=== PATIENT | male | born 1955 | race African-American/Black ===

== ENCOUNTER 2018-06-08 15:01 | Emergency (ER) | payer OTHER ==
[~2018-06-08] VITALS: Ht 180.3 cm; Wt 88.9 kg
[2018-06-08 15:09] VITALS: BP 111/72
--- NOTE | 2018-06-08 15:56 | NUR ---
PATIENT AMBULATED TO BED 8
--- NOTE | 2018-06-08 15:57 | NUR ---
PT. CAME INTO THE ED DUE TO L TOE LACERATION TODAY. PT. STATES " I WAS WALKING AND I TRIP AND BUMPED MY TOE AND IT STARTED BLEEDING". 2/10 PAIN IN L TOE THAT IS SHARP AND NON RADIATING. L TOE IS SWOLLEN AND WARM TO TOUCH. CAP REFILL IS LESS THAN 3 SECONDS ON L FOOT. ER MD NOTIFIED. WILL CONTINUE TO MONITOR.
[2018-06-08] MEDS ORDERED: NEOMYCIN/POLYMYXIN/BACITRACIN 0.9 GM/1 PKT TP ONE (17:30)
[2018-06-08] MEDS ORDERED: cefTRIAXone 1,000 MG in LIDOCAINE 1% ***ER ONLY *** 2.1 ML IM ONE (17:30)
[2018-06-08] MEDS ORDERED: HYDROcodone/APAP 5/325 MG 1 TAB TAB PO ONE (17:30)
[2018-06-08] MEDS ORDERED: cefTRIAXone 1,000 MG VIAL ONE (17:40)
[2018-06-08] MEDS ORDERED: LIDOCAINE MPF 1% - **ER/OR** 5 ML ONE (17:41)
--- NOTE | 2018-06-08 18:00 | NUR ---
PT. RETING COMFORTABLY IN BED , RR EVEN AND UNLABORED, VSS. WILL CONTINUE TO MONITOR.
--- NOTE | 2018-06-08 18:34 | NUR ---
XRAY AT BEDSIDE AT THIS TIME.
[2018-06-08 19:08] VITALS: BP 116/70
== END 2018-06-08 19:08 | disposition home or self-care (01) ==
LOC: MED 15:01
DX: S92.425A Nondisplaced fracture of distal phalanx of left great toe, initial encounter for closed fracture (principal); I10 Essential (primary) hypertension; E78.5 Hyperlipidemia, unspecified; W01.0XXA Fall on same level from slipping, tripping and stumbling without subsequent striking against object, initial encounter; Y93.89 Activity, other specified; Y92.89 Other specified places as the place of occurrence of the external cause; Y99.8 Other external cause status
CPT/HCPCS: 12002; 73660; 90471; 90715; 96372; 99284; J0696; J2001

== ENCOUNTER 2019-01-08 11:01 | Emergency (ER) | payer OTHER ==
[~2019-01-08] VITALS: Ht 180.3 cm; Wt 84.0 kg
[2019-01-08 11:45] VITALS: BP 100/71
--- NOTE | 2019-01-08 12:11 | NUR ---
PT RECENTLTLY CAME BACK FROM THE [facility] AND [facility] [place] LAST TUESDAY WITH C/O ABDOMINAL PAIN, CONSTIPATION SINCE YESTERDAY, FEVER, NIGHT SWEATS AND FATIGUE. PER PT HE HAD DIARRHEA A WEAK AGO NO CONSTIPATED AND SYMPTOMS ARE "LIKE MALARIA". LAST BM TODAY. PT REPORTS RECIEVING MALARIA SHOTS BEFORE LEAVING FOR CHARGED.fm. VSS; PATIENT POSITIONED FOR COMFORT; HOB ELEVATED; BEDRAILS UP X1; BED DOWN. ER MD MADE AWARE OF PT STATUS.
[2019-01-08 12:57] LABS: BASOPHILS % (AUTO) 0.5 % (0.0-2.0); EOSINOPHILS % (AUTO) 0.4 % (0.0-4.0); HEMATOCRIT 38.5 % (36-52); HEMOGLOBIN 12.9 g/dL (12.0-18.0); LYMPHOCYTES # (AUTO) 2.4 K/uL (2.0-11.5); LYMPHOCYTES % (AUTO) 36.8 % (20.5-51.1); MEAN CORPUSCULAR HEMOGLOBIN 30 pg (27-31); MEAN CORPUSCULAR HGB CONC 34 g/dL (33-37); MEAN CORPUSCULAR VOLUME 90.2 fL (80-94); MONOCYTES # (AUTO) 0.4 K/uL (0.8-1.0); MONOCYTES % (AUTO) 6.1 % (1.7-9.3); NEUTROPHILS # (AUTO) 3.7 K/uL (1.8-7.7); NEUTROPHILS % (AUTO) 56.2 % (42.2-75.2); PLATELET COUNT (AUTO) 329 K/uL (140-450); RED BLOOD CELL COUNT(AUTO) 4.27 MIL/uL (4.20-6.10); RED CELL DISTRIBUTION WIDTH 14.1 % (11.6-13.7); WHITE BLOOD COUNT (AUTO) 6.5 K/uL (4.8-10.8)
[2019-01-08 13:11] LABS: ANION GAP 8.2 (8-16); CARBON DIOXIDE 34.3 mmol/L (21-32); CREATININE 1.3 mg/dL (0.7-1.3); POTASSIUM 3.5 mmol/L (3.5-5.1)
[2019-01-08 13:17] LABS: ALBUMIN 3.4 g/dL (3.4-5.0); TOTAL BILIRUBIN 0.5 mg/dL (0.0-1.0)
[2019-01-08 13:22] LABS: APPEARANCE,URINE CLEAR (CLEAR); BILIRUBIN,URINE NEGATIVE (NEGATIVE); BLOOD, URINE NEGATIVE (NEGATIVE); COLOR,URINE YELLOW (YELLOW); LEUKOCYTE ESTERASE ,URINE NEGATIVE (NEGATIVE); NITRITE, URINE NEGATIVE (NEGATIVE); PH,URINE 7.5 (5.0-9.0); UGLUCOSE NEGATIVE (NEGATIVE)
[2019-01-08 13:26] LABS: RBC,URINE 0-5 (RARE) /HPF (0-5); WBC,URINE 0-5 (RARE) /HPF (0-5)
--- NOTE | 2019-01-08 15:17 | NUR ---
Patient discharged with v/s stable. Written and verbal after care instructions given and explained. Patient alert, oriented and verbalized understanding of instructions. Ambulatory with steady gait. All questions addressed prior to discharge. ID band removed. Patient advised to follow up with PMD. Rx of IBUPROFEN AND AUGMENTIN given. Patient educated on indication of medication including possible reaction and side effects. Opportunity to ask questions provided and answered.
[2019-01-08 15:18] VITALS: BP 106/79
== END 2019-01-08 15:17 | disposition home or self-care (01) ==
LOC: MED 11:01
DX: K52.9 Noninfective gastroenteritis and colitis, unspecified (principal); R61 Generalized hyperhidrosis; I10 Essential (primary) hypertension
CPT/HCPCS: 36415; 71045; 74176; 80053; 81001; 85025; 87205; 87804; 93005; 99284; Q0092

== ENCOUNTER 2019-05-30 17:28 | Inpatient (IN) | payer OTHER ==
[~2019-05-30] VITALS: Ht 180.3 cm; Wt 80.7 kg
[2019-05-30 17:33] VITALS: BP 111/68
--- NOTE | 2019-05-30 17:35 | NUR ---
PT AMBULATED TO ER BED 12
--- NOTE | 2019-05-30 17:51 | NUR ---
PT PRESENTS TO ED WITH C/O DIARRHEA SINCE March. PT WAS DIAGNOSED WITH CRYPTOSPORDIUM 05/29/19 BY PCP BUT WAS NOT GIVEN ANY MEDICATION FOR TREATMENT. PT REPORTS DIARRHEA EVERY HOUR, LOSS OF 18LBS IN LAST MONTH. DENIES BLOOD IN STOOL, VOMITING, FEVER. HX: HTN, HIGH CHOLESTEROL RX: ATORVASTATIN, AMLODIPINE
--- NOTE | 2019-05-30 17:54 | NUR ---
DR. CANNON EVALUATED PT
[2019-05-30] MEDS ORDERED: NACL 0.9% 1,000 ML IV ONE (17:55)
[2019-05-30] MEDS ORDERED: metroNIDAZOLE 500 MG/NS PREMIX 100 ML IV ONE (17:55)
[2019-05-30] MEDS ORDERED: ONDANSETRON 4 MG/2 ML VIAL IVP ONE (17:55)
--- NOTE | 2019-05-30 18:03 | NUR ---
PT TAKEN TO CT VIA WHEELCHAIR
[2019-05-30 18:30] LABS: BASOPHILS % (AUTO) 0.2 % (0.0-2.0); EOSINOPHILS # (AUTO) 0.5 K/uL (0-0.4); EOSINOPHILS % (AUTO) 4.3 % (0.0-4.0); HEMATOCRIT 37.8 % (36-52); HEMOGLOBIN 12.9 g/dL (12.0-18.0); LYMPHOCYTES # (AUTO) 2.3 K/uL (2.0-11.5); LYMPHOCYTES % (AUTO) 20.7 % (20.5-51.1); MEAN CORPUSCULAR HEMOGLOBIN 31 pg (27-31); MEAN CORPUSCULAR HGB CONC 34 g/dL (33-37); MEAN CORPUSCULAR VOLUME 90.7 fL (80-94); MONOCYTES # (AUTO) 1.2 K/uL (0.8-1.0); MONOCYTES % (AUTO) 11.2 % (1.7-9.3); NEUTROPHILS # (AUTO) 6.9 K/uL (1.8-7.7); NEUTROPHILS % (AUTO) 63.6 % (42.2-75.2); PLATELET COUNT (AUTO) 315 K/uL (140-450); RED BLOOD CELL COUNT(AUTO) 4.17 MIL/uL (4.20-6.10); RED CELL DISTRIBUTION WIDTH 14.5 % (11.6-13.7); WHITE BLOOD COUNT (AUTO) 10.9 K/uL (4.8-10.8)
[2019-05-30 18:51] LABS: ALBUMIN 3.1 g/dL (3.4-5.0); ANION GAP 12.6 (8-16); CARBON DIOXIDE 28.5 mmol/L (21-32); CREATININE 1.8 mg/dL (0.7-1.3); POTASSIUM 3.1 mmol/L (3.5-5.1); TOTAL BILIRUBIN 0.7 mg/dL (0.0-1.0)
[2019-05-30] MEDS ORDERED: ATOR40TA PO (19:07)
[2019-05-30] MEDS ORDERED: AMLO5TAB PO (19:07)
[2019-05-30] MEDS ORDERED: TIM.5OS OP (19:07)
[2019-05-30] MEDS ORDERED: ALPOS OP (19:07)
--- NOTE | 2019-05-30 19:09 | NUR ---
REPORT GIVEN TO DELFINO PINO. TRANSFER OF CARE AT THIS TIME. PT IN STABLE CONDITION.
[2019-05-30] MEDS ORDERED: KCL 20 MEQ/WATER INJ PREMIX 100 ML IV ONE (19:15)
[2019-05-30] MEDS ORDERED: LEVOFLOXACIN 750 MG/D5W PREMIX 150 ML IV ONE (19:25)
--- NOTE | 2019-05-30 20:00 | NUR ---
PT IN BED RESTING WITH EYES OPEN. 0/10 PAIN. NO N/V. VSS. CONTINUE TO MONITOR.
[2019-05-30] MEDS ORDERED: HYDROcodone/APAP 7.5/325 MG 1 TAB PO PRN (20:30)
[2019-05-30] MEDS ORDERED: ACETAMINOPHEN 325 MG TAB PO PRN (20:30)
[2019-05-30] MEDS ORDERED: ONDANSETRON 4 MG/2 ML VIAL IVP PRN (20:30)
--- NOTE | 2019-05-30 21:07 | NUR ---
REPORT GIVEN AND CARE TRANSFERED TO FEBRUARY RN ROOM 125B. TRNASFERED VIA GURNEY WITH VSS.
[2019-05-30 21:18] LABS: FREE T4 (FREE THYROXINE) 1.21 ng/dL (0.76-1.46); MAGNESIUM 1.7 mg/dL (1.8-2.4); PHOSPHORUS 2.9 mg/dL (2.5-4.9); THYROID STIMULATING HORMONE 1.5 uIU/mL (0.34-3.74)
--- NOTE | 2019-05-30 21:25 | NUR ---
RECEIVED PT FROM ER NURSE. PT AMBULATED FROM GURNEY TO BED, STEADY GAIT. PT AWAKE, ALERT AND ORIENTED X4, ABLE TO VERBALIZE NEEDS. BREATHING ON ROOM AIR, NO VISIBLE SIGNS OF DISTRESS, NO C/O DISCOMFORT. PT HAS IV 20G IN BOTH RIGHT AND LEFT A/C, FLUSHED WITH SALINE, INTACT AND PATENT. SAFETY MEASURES IN PLACE. PT ORIENTED EDGE POLISHER LIGHT. CALL LIGHT WITHIN REACH.
[2019-05-30 21:32] LABS: APPEARANCE,URINE CLEAR (CLEAR); BILIRUBIN,URINE NEGATIVE (NEGATIVE); BLOOD, URINE NEGATIVE (NEGATIVE); COLOR,URINE YELLOW (YELLOW); LEUKOCYTE ESTERASE ,URINE NEGATIVE (NEGATIVE); NITRITE, URINE NEGATIVE (NEGATIVE); UGLUCOSE NEGATIVE (NEGATIVE)
[2019-05-30] MEDS ORDERED: POTASSIUM CHLORIDE 10 MEQ TABER PO ONE (21:35)
[2019-05-30 21:40] LABS: BARBITURATE, URINE NEG. ng/ml (NEG <=200); BENZODIAZEPINE, URINE NEG. ng/mL (NEG <=200); CANNABINOID, URINE NEG. ng/mL (NEG <=50); COCAINE, URINE NEG. ng/mL (NEG <=300); OPIATE, URINE NEG. ng/mL (NEG <=2000); PHENCYCLIDINE SCREEN,URINE NEG. ng/mL (NEG <=25)
--- NOTE | 2019-05-30 23:01 | NUR ---
MEDICATION GIVEN ORDERED. PT TOLERATED WELL.
[2019-05-30] MEDS: DEXT 5% /NACL 0.9% 1,000 ML IV SCH (23:11)
[2019-05-31] VITALS: BP 110/70
--- NOTE | 2019-05-31 | NUR ---
STOOL SAMPLES COLLECTED AND SENT TO LAB.
--- NOTE | 2019-05-31 01:37 | NUR ---
IV ANTIBIOTICS HUNG. PT SLEEPING BUT EASILY AWAKEN. NO C/O DISCOMFORT. CALL LIGHT WITHIN REACH.
[2019-05-31] MEDS ORDERED: cefTRIAXone 1,000 MG VIAL ONE (01:42)
--- NOTE | 2019-05-31 03:15 | NUR ---
RESULTS FROM OB STOOL SAMPLE CAME BACK POSITIVE. RESIDENT MD MADE AWARE.
--- NOTE | 2019-05-31 05:00 | NUR ---
LEONARDO CULP. PT SLEEPING IN BED. NO VISIBLE SIGNS OF DISTRESS. BREATHING EQUAL AND UNLABORED.
[2019-05-31] MEDS: metroNIDAZOLE 500 MG/NS PREMIX 100 ML IV SCH ×2 (05:03→12:30)
[2019-05-31] MEDS: DEXT 5% /NACL 0.9% 1,000 ML IV SCH (06:24)
[2019-05-31 06:51] LABS: BASOPHILS % (AUTO) 0.2 % (0.0-2.0); EOSINOPHILS # (AUTO) 0.4 K/uL (0-0.4); EOSINOPHILS % (AUTO) 3.5 % (0.0-4.0); HEMATOCRIT 36.4 % (36-52); HEMOGLOBIN 12.4 g/dL (12.0-18.0); LYMPHOCYTES % (AUTO) 28.5 % (20.5-51.1); MEAN CORPUSCULAR HEMOGLOBIN 31 pg (27-31); MEAN CORPUSCULAR HGB CONC 34 g/dL (33-37); MEAN CORPUSCULAR VOLUME 90.6 fL (80-94); MONOCYTES # (AUTO) 1.2 K/uL (0.8-1.0); MONOCYTES % (AUTO) 11.6 % (1.7-9.3); NEUTROPHILS # (AUTO) 5.9 K/uL (1.8-7.7); NEUTROPHILS % (AUTO) 56.2 % (42.2-75.2); PLATELET COUNT (AUTO) 278 K/uL (140-450); RED BLOOD CELL COUNT(AUTO) 4.01 MIL/uL (4.20-6.10); RED CELL DISTRIBUTION WIDTH 14.3 % (11.6-13.7); WHITE BLOOD COUNT (AUTO) 10.5 K/uL (4.8-10.8)
[2019-05-31 06:53] LABS: ANION GAP 14.5 (8-16); CARBON DIOXIDE 23.8 mmol/L (21-32); CREATININE 1.3 mg/dL (0.7-1.3); POTASSIUM 3.3 mmol/L (3.5-5.1)
--- NOTE | 2019-05-31 07:01 | NUR ---
RECEIVED BED SIDE REPORT FROM FABRIC WORKER SUPERVISOR RN FEBRUARY. PT SLEEPING, ON CONTACT PRECAUTIONS, STOOL SPECIMEN SENT FOR CONFIRMATION OF INFECTIOUS SOURCE. WILL AWAIT RESULTS
[2019-05-31 07:02] LABS: MAGNESIUM 1.6 mg/dL (1.8-2.4); PHOSPHORUS 2.8 mg/dL (2.5-4.9)
--- NOTE | 2019-05-31 07:02 | NUR ---
ENDORSED PT TO AM NURSE. PT IN STABLE CONDITION.
[2019-05-31 07:03] LABS: CHOL/HDL RATIO 2.3 (1-4.5)
--- NOTE | 2019-05-31 09:07 | NUR ---
PATIENT HAS BEEN SCREENED AND CATEGORIZED HIGH NUTRITION RISK. PATIENT WILL BE SEEN WITHIN 1-2 DAYS OF ADMISSION. 05/31/19KILLIAN CANCINO MBA, RD
--- NOTE | 2019-05-31 09:29 | NUR ---
PT SAID HE HAD 7 DIARRHEA EPISODES LAST NIGHT AND SOME THIS AM. US ABDOMEN TO BE DONE AT 1500. VS STABLE. ON RA IN NO RESPIRATORY DISTRESS. RESIDENTS CAME TO DO ROUNDS ON PT. TOLD HIM THAT WE WILL WAIT FOR STOOL SAMPLE RESULTS TO COME BACK.
[2019-05-31] MEDS: MAGNESIUM OXIDE 400 MG TAB PO SCH (09:50)
[2019-05-31] MEDS: amLODIPine 5 MG TAB PO SCH (09:52)
[2019-05-31] MEDS: ATORVASTATIN 20 MG TAB PO SCH (09:52)
[2019-05-31] MEDS: PANTOPRAZOLE 40 MG INJ VIAL IVP SCH (09:55)
[2019-05-31] MEDS: BRIMONIDINE TARTRATE 0.2% OP 5 ML BTL LEFT EYE SCH (10:30)
[2019-05-31] MEDS ORDERED: COMMUNICATION ORDER MC PRN (10:55)
[2019-05-31] MEDS ORDERED: TIMOLOL OP 0.5% 5 ML BTL OP SCH (11:00)
[2019-05-31] MEDS ORDERED: SHARK OIL/PHENYLEPHRINE 60 GM TUBE TP PRN (11:30)
[2019-05-31] MEDS ORDERED: POTASSIUM CHLORIDE 10 MEQ TABER PO SCH (12:30)
[2019-05-31] MEDS ORDERED: MAG SULF 2000 MG/WATER PREMIX 100 ML IV SCH (12:30)
[2019-05-31] MEDS: NACL 0.9% 1,000 ML IV SCH (12:37)
--- NOTE | 2019-05-31 12:40 | NUR ---
GAVE PT TIMOLOL EYEDROPS. ALPHAGAN EYE DROPS NOT AVAILABLE IN PHARMACY TODAY. TOLD ME IT WOULD BE READY TOMORROW MORNING 06/01. HUNG MAGNESIUM SULFATE, MAGNESIUM LEVEL 1.6 THROUGH RIGHT AC. HUNG FLAGYL THROUGH LEFT AC. IV FLUIDS CHANGED TO NS RUNNING 40CC/HR. GAVE POTASSIUM CHLORIDE 40MEG TAB. EDUCATED PT ON MEDICATION AND ELECTROLYTE SUPPLEMENTAL AND S/E. PT VERBALIZED UNDERSTANDING. WILL CONTINUE TO MONITOR
--- NOTE | 2019-05-31 13:52 | NUR ---
RIGHT AC IV LINE INFILTRATED AND LEAKING. FLUSHES WELL BUT NO BLOOD RETURN. MAGNESIUM DONE. TOOK OUT IV LINE. LEFT AC IV STILL RUNNING NS. FLAGYL ALREADY DONE
[2019-05-31 16:00] VITALS: BP 106/73
[2019-05-31] MEDS: DIPHENOXYLATE /ATROPINE 2.5 MG TAB PO SCH (16:54)
--- NOTE | 2019-05-31 19:12 | NUR ---
GAVE BED SIDE REPORT FROM ROTARY DRUM TANNER DELFINO GOVEA. PT IN STABLE CONDITION
--- NOTE | 2019-05-31 19:13 | NUR ---
RECD. RESTING IN BED, AWAKE A/OX4. RESPIRATION EVEN AND UNLABORED. IV OF NS AT 40 ML/HR INFUSING, LEFT AC G20. STATED HE STILL IS HAVING DIARRHEA GREENISH IN COLOR, SMALL AMOUNT, EVERY 1-2 HOURS. ENCOURAGED TO DRINK MORE FLUIDS. PLAN OF CARE FOR THE SHIFT DISCUSSED. VERBALIZED UNDERSTANDING. DENIES PAIN 0/10.
[2019-05-31] MEDS: TIMOLOL OP 0.5% 5 ML BTL OP SCH (21:27)
--- NOTE | 2019-05-31 21:27 | NUR ---
RESTING IN BED, DUE MEDICATION GIVEN. STATED HIS BM IS STILL LIQUID, SMALL AMOUNT AND BROWNISH IN COLOR.
[2019-06-01] VITALS: BP 105/64
[2019-06-01] MEDS: DIPHENOXYLATE /ATROPINE 2.5 MG TAB PO SCH ×3 (00:25→11:22)
--- NOTE | 2019-06-01 00:25 | NUR ---
STATED HE HAS NOT HAVE A LOOSE BM SINCE 2099. ENCOURAGED TO DRINK MORE FLUIDS.
--- NOTE | 2019-06-01 03:00 | NUR ---
SLEEPING COMFORTABLY IN BED.
--- NOTE | 2019-06-01 06:38 | NUR ---
MEDICATED WITH LOMOTIL ORDERED. CLAIMED HE HAD ONLY ONE SMALL LOOSE BM, BROWN IN COLOR.
--- NOTE | 2019-06-01 07:20 | NUR ---
CONDITION REMAIN STABLE. ENDORSED TO AM NURSE FOR MONITORING OF BM AND FOR CONTINUITY OF CARE.
--- NOTE | 2019-06-01 07:25 | NUR ---
RECEIVED PT FROM SPECIALTY SALES CONSULTANT NURSE, PT IS AWAKE AND LYING ON THE BED WITH SIDE RAILS UP AND CALL LIGHT WITHIN REACH, AOX4, IV LINE ON THE LEFT AC G. 20 WITH NS AT 40ML/HR INFUSING. NO SIGN OF DISTRESS NOTED AND WILL MONITOR PT.
[2019-06-01 07:29] LABS: BASOPHILS % (AUTO) 0.2 % (0.0-2.0); EOSINOPHILS # (AUTO) 0.4 K/uL (0-0.4); EOSINOPHILS % (AUTO) 3.8 % (0.0-4.0); HEMATOCRIT 32.8 % (36-52); HEMOGLOBIN 11.4 g/dL (12.0-18.0); LYMPHOCYTES # (AUTO) 2.7 K/uL (2.0-11.5); MEAN CORPUSCULAR HEMOGLOBIN 31 pg (27-31); MEAN CORPUSCULAR HGB CONC 35 g/dL (33-37); MEAN CORPUSCULAR VOLUME 89.5 fL (80-94); MONOCYTES # (AUTO) 1.3 K/uL (0.8-1.0); MONOCYTES % (AUTO) 11.1 % (1.7-9.3); NEUTROPHILS # (AUTO) 6.9 K/uL (1.8-7.7); NEUTROPHILS % (AUTO) 60.9 % (42.2-75.2); PLATELET COUNT (AUTO) 281 K/uL (140-450); RED BLOOD CELL COUNT(AUTO) 3.67 MIL/uL (4.20-6.10); RED CELL DISTRIBUTION WIDTH 14.6 % (11.6-13.7); WHITE BLOOD COUNT (AUTO) 11.3 K/uL (4.8-10.8)
[2019-06-01 07:31] LABS: MAGNESIUM 1.6 mg/dL (1.8-2.4); PHOSPHORUS 2.8 mg/dL (2.5-4.9)
[2019-06-01 07:49] LABS: CARBON DIOXIDE 26.5 mmol/L (21-32); CREATININE 1.3 mg/dL (0.7-1.3); POTASSIUM 3.5 mmol/L (3.5-5.1)
[2019-06-01 08:00] VITALS: BP 121/73
[2019-06-01] MEDS: MAGNESIUM OXIDE 400 MG TAB PO SCH (09:03)
[2019-06-01] MEDS: PANTOPRAZOLE 40 MG INJ VIAL IVP SCH (09:03)
[2019-06-01] MEDS: ATORVASTATIN 20 MG TAB PO SCH (09:03)
[2019-06-01] MEDS: amLODIPine 5 MG TAB PO SCH (09:03)
[2019-06-01] MEDS: TIMOLOL OP 0.5% 5 ML BTL OP SCH ×2 (09:04→20:31)
[2019-06-01] MEDS ORDERED: ATRO1TAB60 PO (09:06)
--- NOTE | 2019-06-01 09:08 | NUR ---
PT IS AWAKE AND SEATED ON THE BED, V/S TAKEN AND IS WITHIN NORMAL LIMIT, EYE AND ORAL MEDICATIONS WERE GIVEN AND PT TOLERATED IT. NO SIGN OF DISTRESS NOTED AND WILL MONITOR PT.
[2019-06-01 10:29] LABS: LACTATE DEHYDROGENASE 202 IU/L (121-224)
[2019-06-01] MEDS: BRIMONIDINE TARTRATE 0.2% OP 5 ML BTL LEFT EYE SCH (10:30)
[2019-06-01] MEDS: NACL 0.9% 1,000 ML IV SCH (11:23)
--- NOTE | 2019-06-01 11:26 | NUR ---
PT WAS GIVEN LOMOTIL NOW.
--- NOTE | 2019-06-01 12:05 | NUR ---
CAME TO PT'S ROOM AND SPOKE TO PT, PT RESPONDING APPROPRIATELY.
--- NOTE | 2019-06-01 12:41 | NUR ---
PT'S IVF RATE WAS INCREASED TO 80ML/HR NOW.
--- NOTE | 2019-06-01 12:51 | NUR ---
PT SIGNED THE CONSENT FOR COLONOSCOPY, CONSENT ATTACHED TO CHART.
--- NOTE | 2019-06-01 13:45 | NUR ---
FNS RECOMMENDED TO GIVE PT ENSURE CLEAR BID.
--- NOTE | 2019-06-01 15:17 | NUR ---
Instrumentation And Controls Technician Note: I reviewed patient's Advance Directive for validity, document valid. I requested Jackson Her from Admitting Dept to please scan Advance Directive into [employer].
[2019-06-01 16:00] VITALS: BP 106/70
--- NOTE | 2019-06-01 16:35 | NUR ---
06/01/19 RD INITIAL ASSESSMENT COMPLETED PLEASE REFER TO NUTRITION ASSESSMENT UNDER CARE ACTIVITY FOR ESTIMATED NUTRITIONAL NEEDS. 1. CONTINUE CLEAR LIQUID 2. RD TO FOLLOW-UP 2-3 DAYS, HIGH RISK NOA KAUR, CANDY
--- NOTE | 2019-06-01 19:24 | NUR ---
ENDORSED PT TO SHIFT COORDINATOR NURSE FOR CONTINUITY OF CARE.
--- NOTE | 2019-06-01 19:25 | NUR ---
RECEIVED BEDSIDE REPORT FROM DAY SHIFT RN. PT IS AAOX4. ON ROOM AIR. RESPIRATIONS ARE EQUAL AND UNLABORED. SKIN IS INTACT. CONTINUE TO HAVE LIQUID STOOLS PER PATIENT. HAS COLONOSCOPY TOMORROW 06/[address] TRAMMELL. CONSENT WAS SIGN AND PT VERBALIZE UNDERSTANDING. PT IS AMBULATORY ABLE TO MAKE NEEDS KNOWN. PLAN OF CARE DISCUSSED. CALL LIGHT IS WITHIN REACH. WILL ROUND FREQUENTLY.
[2019-06-01] MEDS: POTASSIUM CHLORIDE 20% 40 MEQ/15 ML UDC GT SCH (20:31)
--- NOTE | 2019-06-01 20:31 | NUR ---
SCHEDULED MEDICATIONS GIVEN. BOWEL PREP GIVEN PATIENT STATES HE HAS HAD A FEW COLONOSCOPY BEFORE. CALL LIGHT IS WITHIN REACH. WILL ROUND FREQUENTLY.
[2019-06-01] MEDS: SUPREP BOWEL PREP KIT 354 ML SOLN.RECON PO SCH (20:32)
--- NOTE | 2019-06-01 22:00 | NUR ---
PATIENT CONTINUES TO HAVE LIQUID STOOLS BEGINNING TO CLEAR UP SLIGHT/LIGHT GREEN/BROWN.
[2019-06-01 23:34] VITALS: BP 111/73
--- NOTE | 2019-06-01 23:35 | NUR ---
VITAL SIGNS ARE WITHIN NORMAL LIMITS. NO S/S OF DISTRESS. WILL CONTINUE TO MONITOR.
[2019-06-02] MEDS: NACL 0.9% 1,000 ML IV SCH (00:15)
--- NOTE | 2019-06-02 02:00 | NUR ---
PATIENT IS SLEEPING COMFORTABLY IN BED. NO S/S OF DISTRESS. CALL LIGHT IS WITHIN REACH.
--- NOTE | 2019-06-02 04:00 | NUR ---
PATIENT IS SLEEPING COMFORTABLY IN BED. NO S/S OF DISTRESS. CALL LIGHT IS WITHIN REACH.
--- NOTE | 2019-06-02 05:34 | NUR ---
PATIENT IS AWAKE WATCHING TELEVISION. NO S/S OF DISTRESS. BOWEL MOVEMENT IS NOW CLEAR. ALL NEEDS MET AT THIS TIME. CALL LIGHT IS WITHIN REACH. WILL CONTINUE TO MONITOR.
[2019-06-02 07:27] LABS: ANION GAP 11.5 (8-16); CARBON DIOXIDE 26.8 mmol/L (21-32); CREATININE 1.4 mg/dL (0.7-1.3); POTASSIUM 3.3 mmol/L (3.5-5.1)
--- NOTE | 2019-06-02 07:29 | NUR ---
GAVE BEDSIDE REPORT TO DAY SHIFT RN. PT ENDORSED IN STABLE CONDITION.
[2019-06-02 07:30] LABS: MAGNESIUM 1.5 mg/dL (1.8-2.4); PHOSPHORUS 3.4 mg/dL (2.5-4.9)
[2019-06-02 07:31] LABS: BASOPHILS % (AUTO) 0.2 % (0.0-2.0); EOSINOPHILS # (AUTO) 0.5 K/uL (0-0.4); EOSINOPHILS % (AUTO) 5.8 % (0.0-4.0); HEMATOCRIT 31.5 % (36-52); HEMOGLOBIN 10.9 g/dL (12.0-18.0); LYMPHOCYTES # (AUTO) 2.6 K/uL (2.0-11.5); LYMPHOCYTES % (AUTO) 32.3 % (20.5-51.1); MEAN CORPUSCULAR HEMOGLOBIN 31 pg (27-31); MEAN CORPUSCULAR HGB CONC 35 g/dL (33-37); MEAN CORPUSCULAR VOLUME 90.1 fL (80-94); MONOCYTES # (AUTO) 0.9 K/uL (0.8-1.0); MONOCYTES % (AUTO) 10.8 % (1.7-9.3); NEUTROPHILS # (AUTO) 4.1 K/uL (1.8-7.7); NEUTROPHILS % (AUTO) 50.9 % (42.2-75.2); PLATELET COUNT (AUTO) 279 K/uL (140-450); RED CELL DISTRIBUTION WIDTH 14.7 % (11.6-13.7); WHITE BLOOD COUNT (AUTO) 8.1 K/uL (4.8-10.8)
--- NOTE | 2019-06-02 07:35 | NUR ---
RECEIVED BEDSIDE REPORT FROM RIVET STICKER NURSE. PT AOX4, PERSIAN SPEAKING. NO C/O PAIN OR DISCOMFORT. PLAN FOR COLONSCOPY TODAY. PT AND RIVET STICKER RN STATE STOOL HAS BEEN CLEAR OVERNIGHT ALREADY. RESPIRATIONS EVEN AND UNLABORED ON RA. IV SITE PATENT AND ASYMPTOMATIC, INFUSING IVF PER MD ORDERS. UPDATED BOARD AND EXPLAINED POC. ALL SAFETY PRECAUTIONS IN PLACE, WILL CONTINUE TO MONITOR.
[2019-06-02 08:00] VITALS: BP 126/88
--- NOTE | 2019-06-02 08:35 | NUR ---
PER SEED TESTER MAMI, COLONOSCOPY WILL BE AT 10AM TODAY. WILL NOTIFY PATIENT.
[2019-06-02] MEDS ORDERED: POTASSIUM CHLORIDE 40 MEQ, LIDOCAINE MPF 1% - 5 mL VIAL 25 MG in NACL 0.9% 250 ML IV ONE (08:55)
[2019-06-02] MEDS: POTASSIUM CHLORIDE 20% 40 MEQ/15 ML UDC GT SCH ×2 (08:57→21:47)
[2019-06-02] MEDS: MAGNESIUM OXIDE 400 MG TAB PO SCH (08:57)
[2019-06-02] MEDS: amLODIPine 5 MG TAB PO SCH (08:57)
[2019-06-02] MEDS: ATORVASTATIN 20 MG TAB PO SCH (08:57)
[2019-06-02] MEDS: TIMOLOL OP 0.5% 5 ML BTL OP SCH ×2 (08:58→21:47)
[2019-06-02] MEDS: SUPREP BOWEL PREP KIT 354 ML SOLN.RECON PO SCH (09:00)
--- NOTE | 2019-06-02 09:01 | NUR ---
INFORMED PATIENT THAT COLONOSCOPY SCHEDULED FOR 10AM TODAY. PATIENT REFUSED BOWEL PREP. STATES HIS STOOL HAS BEEN CLEAR. [employer]DLE [employer]CHOOL MATH TEACHER RN STATES PT HAD OVER 20 BM OVERNIGHT AND HAS BEEN CLEAR ALREADY. ASKED PATIENT TO NOT FLUSH THE NEXT TIME HE HAS BM AND CALL ME TO CHECK. PT VERBALIZED COMPLETE UNDERSTANDING.
--- NOTE | 2019-06-02 09:19 | NUR ---
PATIENT CALLED SAYING HE HAD BM. VISUALIZED CLEAR, LIGHT GREEN COLOR FLUID IN TOILET.
--- NOTE | 2019-06-02 09:55 | NUR ---
MEAL COOKER HERE TO DERMATOLOGIST AND DERMATOPATHOLOGIST PATIENT FOR COLONOSCOPY.
[2019-06-02] MEDS ORDERED: diphenhydrAMINE 50 MG/ML VIAL ONE (10:00)
[2019-06-02] MEDS ORDERED: MIDAZOLAM 2 MG/2 ML VIAL ONE ×2 (10:00)
[2019-06-02] MEDS ORDERED: fentaNYL 0.05 MG/ML VIAL ONE (10:00)
[2019-06-02] MEDS: BRIMONIDINE TARTRATE 0.2% OP 5 ML BTL LEFT EYE SCH (10:30)
[2019-06-02] MEDS ORDERED: predniSONE 20 MG TAB PO SCH (11:30)
--- NOTE | 2019-06-02 11:35 | NUR ---
PATIENT BACK FROM COLONOSCOPY.
[2019-06-02] MEDS ORDERED: fentaNYL 0.05 MG/ML VIAL IVP ONE (11:50)
[2019-06-02] MEDS ORDERED: MIDAZOLAM 2 MG/2 ML VIAL IVP ONE (11:50)
[2019-06-02 12:05] VITALS: BP 103/70
--- NOTE | 2019-06-02 12:56 | NUR ---
SCHEDULED MEDICATIONS ADMINISTERED. PT SITTING IN BED, EATING LUNCH. NO COMPLAINTS AT THIS TIME.
[2019-06-02] MEDS ORDERED: MESALAMINE 400 MG CAPSULE.DR PO SCH (13:00)
[2019-06-02] MEDS: MESALAMINE 250 MG CAPER PO SCH ×2 (13:57→17:00)
--- NOTE | 2019-06-02 13:59 | NUR ---
SCHEDULED MESALAMINE ADMINISTERED. NO C/O PAIN OR DISCOMFORT. TOLERATED LUNCH WELL- NO N/V.
--- NOTE | 2019-06-02 14:53 | NUR ---
MADE DR. SMALL AWARE THAT MG2+ LEVEL THIS AM DRAW WAS 1.5 AND PATIENT RECEIVED SCHEDULED 800MG MAG OX THIS MORNING.
[2019-06-02 16:00] VITALS: BP 113/74
--- NOTE | 2019-06-02 17:05 | NUR ---
Son JONES COMPLETE. CONVERTED TO SALINE LOCK. SCHEDULED MED ADMINISTERED. INFORMED PT OF PLAN FOR D/C TOMORROW. PT VERBALIZED COMPLETE UNDERSTANDING.
--- NOTE | 2019-06-02 19:21 | NUR ---
ENDORSED POC TO GRADES 9 THROUGH 12 TEACHER RN. PT IN STABLE CONDITION.
--- NOTE | 2019-06-02 19:22 | NUR ---
RECEIVED PT IN STABLE CONDITION FROM AM NURSE FOR CONTINUITY OF CARE. AWAKE,ALERT AND ORIENTED X4. AMBULATORY. WITH NO C/O ANY PAIN NOR DISCOMFORT NOTED. A EDWIGE SURG PT. HL ON THE AC G#20. CLEAR AND PATENT. ON CONTACT ISOLATION R/O INFECTION . PLAN OF CARE DISCUSSED AND VERBALIZED UNDERSTANDING. BED ON LOW POSITION. CALL LIGHT PLACED WITHIN EASY REACH. WILL CONTINUE TO MONITOR.
--- NOTE | 2019-06-02 20:30 | NUR ---
PT HAD ANOTHER LOOSE BM . WILL CONTINUE TO MONITOR.
[2019-06-02] MEDS ORDERED: MAG SULF 2000 MG/WATER PREMIX 100 ML IV ONE (21:00)
[2019-06-02] MEDS: predniSONE 20 MG TAB PO SCH (21:47)
--- NOTE | 2019-06-02 22:30 | NUR ---
PT SAID HE FELT NAUSEATED AND SWEATY WHEN HE TOOK THE PENT[place]. DR. ARREAGA , RESIDENT ON DUTY MADE AWARE. SHE SAID SHE WILL FOLLOW IT UP WITH DR. Génesis TRAMMELL IN AM.
[2019-06-03] VITALS: BP 95/69
--- NOTE | 2019-06-03 | NUR ---
MADE ROUNDS. PT SAID HE VOMITED, BUT REFUSED ANY ZOFRAN. PROVIDED WITH ICE AND WILL CONTINUE TO MONITOR.
--- NOTE | 2019-06-03 02:35 | NUR ---
MADE ROUNDS. PT JUST GOT BACK FROM THE BATHROOM. NO C/O ANY PAIN NOTED.
[2019-06-03 04:00] VITALS: BP 103/69
--- NOTE | 2019-06-03 04:00 | NUR ---
VITAL SIGNS TAKEN FOR BP AT AR ONLY 95/69. AT THIS TIME BP 103/69. HAD X2 DIARRHEA DURING THE NIGHT.
--- NOTE | 2019-06-03 06:30 | NUR ---
MADE ROUNDS. PT ASLEEP. NO S/S OF ANY DISCOMFORT NOTED.
--- NOTE | 2019-06-03 07:18 | NUR ---
ENDORSED PT IN STABLE CONDITION TO AM NURSE.
--- NOTE | 2019-06-03 07:20 | NUR ---
RECEIVED BEDSIDE REPORT FROM BOOSTER PUMP OILER NURSE. PT AOX4, GUATEMALAN SPEAKING. DENIES PAIN AND DISCOMFORT. VSS. PER BOOSTER PUMP OILER RN, PT HAD N/V OVERNIGHT, POSSIBLY FROM MESALAMINE. DR. ARREAGA IS AWARE. IV SITE PATENT AND ASYMPTOMATIC, INFUSING IVF PER MD ORDERS. UPDATED BOARD AND EXPLAINED POC. ALL SAFETY PRECAUTIONS IN PLACE, WILL CONTINUE TO MONITOR.
[2019-06-03] MEDS ORDERED: PEN250 PO (08:10)
[2019-06-03] MEDS ORDERED: PRED20TA5 PO ×2 (08:10→11:52)
[2019-06-03 08:16] LABS: BASOPHILS % (AUTO) 0.2 % (0.0-2.0); EOSINOPHILS % (AUTO) 0.3 % (0.0-4.0); HEMATOCRIT 33.1 % (36-52); HEMOGLOBIN 11.4 g/dL (12.0-18.0); LYMPHOCYTES # (AUTO) 2.6 K/uL (2.0-11.5); LYMPHOCYTES % (AUTO) 26.6 % (20.5-51.1); MEAN CORPUSCULAR HEMOGLOBIN 31 pg (27-31); MEAN CORPUSCULAR HGB CONC 35 g/dL (33-37); MEAN CORPUSCULAR VOLUME 89.5 fL (80-94); MONOCYTES % (AUTO) 10.4 % (1.7-9.3); NEUTROPHILS % (AUTO) 62.5 % (42.2-75.2); PLATELET COUNT (AUTO) 316 K/uL (140-450); RED CELL DISTRIBUTION WIDTH 14.7 % (11.6-13.7); WHITE BLOOD COUNT (AUTO) 9.6 K/uL (4.8-10.8)
[2019-06-03] MEDS: amLODIPine 5 MG TAB PO SCH (08:43)
[2019-06-03] MEDS: predniSONE 20 MG TAB PO SCH (08:43)
[2019-06-03] MEDS: ATORVASTATIN 20 MG TAB PO SCH (08:43)
[2019-06-03] MEDS: MESALAMINE 250 MG CAPER PO SCH ×2 (08:43→12:11)
[2019-06-03] MEDS: TIMOLOL OP 0.5% 5 ML BTL OP SCH (08:45)
[2019-06-03 09:15] LABS: ANION GAP 13.3 (8-16); CARBON DIOXIDE 26.7 mmol/L (21-32); CREATININE 1.1 mg/dL (0.7-1.3)
[2019-06-03 09:24] LABS: MAGNESIUM 1.9 mg/dL (1.8-2.4); PHOSPHORUS 2.7 mg/dL (2.5-4.9)
[2019-06-03] MEDS: POTASSIUM CHLORIDE 20% 40 MEQ/15 ML UDC GT SCH (09:35)
[2019-06-03] MEDS ORDERED: MAG400 PO (09:56)
--- NOTE | 2019-06-03 10:03 | NUR ---
PT RESTING IN BED, AROUSABLE BY VOICE. DENIES PAIN AND DISCOMFORT. NO N/V. WILL CONTINUE TO MONITOR.
[2019-06-03] MEDS ORDERED: MESA800T8 PO ×3 (10:10→11:53)
[2019-06-03] MEDS ORDERED: ATRO1TAB PO ×2 (10:31→10:32)
[2019-06-03] MEDS: BRIMONIDINE TARTRATE 0.2% OP 5 ML BTL LEFT EYE SCH (11:09)
--- NOTE | 2019-06-03 12:08 | NUR ---
DR. SMALL AT BEDSIDE TO EXPLAIN D/C POC.
--- NOTE | 2019-06-03 13:50 | NUR ---
DISCHARGE PAPERWORK, INCLUDING INSTRUCTIONS TO F/U WITH PCP AND DR. TRAMMELL, GIVEN TO PATIENT. NEW PRESCRIPTION/MEDICATION TEACHING AND MEDICATION RECONCILIATION TEACHING GIVEN TO PATIENT. IV SITE REMOVED WITH MINIMAL BLOOD LOSS AND LUMEN COMPLETELY INTACT. ID BANDS REMOVED. ALL PERSONAL BELONGINGS ARE WITH PATIENT. PATIENT DISCHARGED, AMBULATORY WITH STEADY GAIT, AND WILL GO HOME VIA PRIVATE VEHICLE BY SELF.
[2019-06-05 07:08] LABS: LD1 FRACTION 20 % (17-32); LD2 FRACTION 33 % (25-40); LD3 FRACTION 23 % (17-27); LD4 FRACTION 12 % (5-13); LD5 FRACTION 12 % (4-20)
== END 2019-06-03 13:45 | disposition home or self-care (01) | DRG 385 ==
LOC: MED 17:28 → MMU 20:42
PROVIDERS: ADMIT General Practice; ATTEND General Practice
PROC: 0DBL8ZX Excision of Transverse Colon, Via Natural or Artificial Opening Endoscopic, Diagnostic (ICD-10-PCS; 2019-06-02)
PROC: 0DBP8ZX Excision of Rectum, Via Natural or Artificial Opening Endoscopic, Diagnostic (ICD-10-PCS; 2019-06-02)
PROC: 0DBF8ZX Excision of Right Large Intestine, Via Natural or Artificial Opening Endoscopic, Diagnostic (ICD-10-PCS; 2019-06-02)
PROC: 0DBG8ZX Excision of Left Large Intestine, Via Natural or Artificial Opening Endoscopic, Diagnostic (ICD-10-PCS; 2019-06-02)
PROC: 0DBH8ZX Excision of Cecum, Via Natural or Artificial Opening Endoscopic, Diagnostic (ICD-10-PCS; principal; 2019-06-02 10:00)
DX: K51.00 Ulcerative (chronic) pancolitis without complications (principal); K85.90 Acute pancreatitis without necrosis or infection, unspecified; N17.0 Acute kidney failure with tubular necrosis; A09 Infectious gastroenteritis and colitis, unspecified; E44.1 Mild protein-calorie malnutrition; J98.11 Atelectasis; E87.6 Hypokalemia; E83.42 Hypomagnesemia; I10 Essential (primary) hypertension; E78.00 Pure hypercholesterolemia, unspecified; E78.5 Hyperlipidemia, unspecified; H40.9 Unspecified glaucoma; E86.0 Dehydration; K64.9 Unspecified hemorrhoids; D64.9 Anemia, unspecified; E87.8 Other disorders of electrolyte and fluid balance, not elsewhere classified; K57.90 Diverticulosis of intestine, part unspecified, without perforation or abscess without bleeding; F43.9 Reaction to severe stress, unspecified; D72.829 Elevated white blood cell count, unspecified; Z68.24 Body mass index [BMI] 24.0-24.9, adult; Z90.49 Acquired absence of other specified parts of digestive tract; Z80.9 Family history of malignant neoplasm, unspecified; Z82.49 Family history of ischemic heart disease and other diseases of the circulatory system
CPT/HCPCS: 36415; 71045; 76700; 80048; 80053; 80305; 81003; 82150; 82272; 83036; 83605; 83625; 83690; 83735; 83880; 84100; 84439; 84443; 84484; 85025; 85610; 85730; 87015; 87040; 87045; 87070; 87081; 87086; 88305; 89055; 93005; 96365; 96367; 96375; 99285; C9113; J0696; J1200; J1644; J1956; J2001; J2250; J2405; J3010; J3475; J3480; J3490; J7030; J7042; J7060; J7512; Q0092

== ENCOUNTER 2019-09-03 07:41 | Emergency (ER) | payer OTHER ==
[~2019-09-03] VITALS: Ht 180.3 cm; Wt 83.5 kg
[~2019-09-03 07:41] MED LIST: ALPOS OP; AMLO5TAB PO; ATOR40TA PO; MAG400 PO; MESA800T8 PO; PRED20TA5 PO; TIM.5OS OP
[2019-09-03 07:47] VITALS: BP 125/88
--- NOTE | 2019-09-03 07:56 | NUR ---
C/O L SIDED CHEST DISCOMFORT RADIATING TO UPPER L BACK, WORSE WHEN LAYING DOWN X 5 DAYS 02/04. PT WAS SEEN AT PCP TUESDAY AND TOLD HE MIGHT HAVE SHINGLES AND WAS GIVEN ACYCLOVIR. PT STATES "IT FEELS LIKE ITS ITCHING INSIDE OF MY RIBS". PT DENIES RASH TO AREA OR TENDERNESS TO TOUCH ON SKIN. NO RASH NOTED TO AREA OF COMPLAINT. PT STATES "IT IS NOT REALLY PAINFUL, JUST UNCOMFORTABLE." PT PLACED IN GOWN, BED IN LOW POSITION, SIDE RAIL UP X1.
--- NOTE | 2019-09-03 08:00 | NUR ---
DR GARCÍA AT BEDSIDE
--- NOTE | 2019-09-03 08:15 | NUR ---
XRAY AT BEDSIDE
--- NOTE | 2019-09-03 08:35 | NUR ---
LAB AT BEDSIDE
[2019-09-03 08:48] LABS: BASOPHILS % (AUTO) 0.4 % (0.0-2.0); EOSINOPHILS # (AUTO) 0.1 K/uL (0-0.4); EOSINOPHILS % (AUTO) 1.5 % (0.0-4.0); HEMATOCRIT 37.9 % (36-52); HEMOGLOBIN 12.5 g/dL (12.0-18.0); LYMPHOCYTES # (AUTO) 2.9 K/uL (2.0-11.5); LYMPHOCYTES % (AUTO) 40.2 % (20.5-51.1); MEAN CORPUSCULAR HEMOGLOBIN 31 pg (27-31); MEAN CORPUSCULAR HGB CONC 33 g/dL (33-37); MEAN CORPUSCULAR VOLUME 94.5 fL (80-94); MONOCYTES # (AUTO) 0.6 K/uL (0.8-1.0); MONOCYTES % (AUTO) 8.6 % (1.7-9.3); NEUTROPHILS # (AUTO) 3.5 K/uL (1.8-7.7); NEUTROPHILS % (AUTO) 49.3 % (42.2-75.2); PLATELET COUNT (AUTO) 206 K/uL (140-450); RED BLOOD CELL COUNT(AUTO) 4.02 MIL/uL (4.20-6.10); RED CELL DISTRIBUTION WIDTH 14.2 % (11.6-13.7); WHITE BLOOD COUNT (AUTO) 7.1 K/uL (4.8-10.8)
[2019-09-03 09:30] VITALS: BP 124/79
== END 2019-09-03 09:30 | disposition home or self-care (01) ==
LOC: MED 07:41
DX: L29.9 Pruritus, unspecified (principal); R07.81 Pleurodynia; I10 Essential (primary) hypertension; H40.9 Unspecified glaucoma; Z79.899 Other long term (current) drug therapy
CPT/HCPCS: 36415; 71045; 85025; 99284; Q0092

== ENCOUNTER 2019-09-04 02:00 | Emergency (ER) | payer OTHER ==
[~2019-09-04] VITALS: Ht 172.7 cm; Wt 83.5 kg
[2019-09-04 02:05] VITALS: BP 142/86
--- NOTE | 2019-09-04 02:10 | NUR ---
PT AMBULATED TO ER BED 12
--- NOTE | 2019-09-04 02:12 | NUR ---
63 yo male bib self for c/o r flank pain. pt states pain since 08/27/19. Pt was seen in ED x 2 days ago and was given Rx; pt unsure about medication name. Pt denies fever or chills. pt denies dysuria, abd distention. denies n/v/d. gurney locked in lowest position. will continue to observe. hx: hld, gastritis, colitis ax: denies
--- NOTE | 2019-09-04 02:30 | NUR ---
Patient discharged with v/s stable. Written and verbal after care instructions given and explained BY DR CARLIN. Patient alert, oriented and verbalized understanding of instructions BY DR CARLIN. Ambulatory with steady gait. All questions addressed prior to discharge BY DR CARLIN. ID band removed. Patient advised to follow up with PMD. Rx of PEPCID given. Patient educated on indication of medication including possible reaction and side effects BY DR CARLIN. Opportunity to ask questions provided and answered.
[2019-09-04 02:35] VITALS: BP 142/86
== END 2019-09-04 02:30 | disposition home or self-care (01) ==
LOC: MED 02:00
DX: K25.9 Gastric ulcer, unspecified as acute or chronic, without hemorrhage or perforation (principal); I10 Essential (primary) hypertension; E78.5 Hyperlipidemia, unspecified; Z79.899 Other long term (current) drug therapy
CPT/HCPCS: 99282